=== PATIENT | female | born 1950 | race Caucasian/White ===

== ENCOUNTER 2019-11-17 10:29 | Inpatient (IN) ==
[~2019-11-17 10:29] MED LIST: Buffered Lidocaine 1% SYRIN 1 ml INTRADERM ONE; Famotidine IV 10 MG/ML 2 ml VIAL (20 mg) IV ONE; Lactated Ringers 1000 ml BAG 1,000 ML IV SCH
[2019-11-17] MEDS ORDERED: ceFAZolin 2 GM PREMIX in ORs 2 GM/50 ML BAG ONE ×2 (10:47→10:48)
[2019-11-17] MEDS ORDERED: Famotidine IV 10 MG/ML 2 ml VIAL (20 mg) ONE (10:48)
[2019-11-17] MEDS ORDERED: fentaNYL 100 mcg/2 ml 50 MCG/ML VIAL ONE (11:46)
[2019-11-17] MEDS ORDERED: Midazolam 2 mg/2 ml VIAL 1 mg/ml 2 ml VIAL (2 mg) ONE ×3 (11:47→13:32)
[2019-11-17] MEDS ORDERED: fentaNYL 100 mcg/2 ml 50 MCG/ML VIAL IV PRN (11:59)
[2019-11-17] MEDS ORDERED: DiMENhydriNATE IV 50 mg/ml 1 ml VIAL IV PUSH PRN (11:59)
[2019-11-17] MEDS ORDERED: Ondansetron 4 mg VIAL 2 MG/ML 2 ml VIAL IV PRN ×2 (11:59→14:17)
[2019-11-17] MEDS ORDERED: Naloxone 0.4 mg VIAL 0.4 mg/ml 1 ml VIAL IV PRN (11:59)
[2019-11-17] MEDS ORDERED: ROPIVACAINE 5 MG/ML 30 ML BTL (0.5%) ONE ×2 (12:01→12:34)
[2019-11-17] MEDS ORDERED: Lidocaine 2% PF 5 ML VIAL ONE (12:27)
[2019-11-17] MEDS ORDERED: Propofol 10 MG/ML 20 ML BTL ONE (12:27)
[2019-11-17] MEDS ORDERED: Bupivacaine 0.5% SDV PF 30ML VIAL ONE (12:43)
[2019-11-17] MEDS ORDERED: Dexamethasone IV 4 MG/ML VIAL 1 ml VIAL ONE (12:58)
[2019-11-17] MEDS ORDERED: Ondansetron 4 mg VIAL 2 MG/ML 2 ml VIAL ONE (12:58)
[2019-11-17] MEDS ORDERED: Metoclopramide 5 MG/ML VIAL (10 mg) ONE (12:58)
[2019-11-17] MEDS ORDERED: Acetaminophen IV 1 GM/100ML 100 ML ONE (13:03)
[2019-11-17] MEDS ORDERED: Morphine 2 MG/ML SYRINGE IV PRN (14:17)
[2019-11-17] MEDS ORDERED: diPHENhydraMINE 25 mg TAB PO PRN (14:17)
[2019-11-17] MEDS ORDERED: Lactulose 30 ml UDC PO PRN (14:17)
[2019-11-17] MEDS ORDERED: Magnesium Hydroxide LIQ 30 ML UDC PO PRN (14:17)
[2019-11-17] MEDS ORDERED: Ondansetron ODT 4 mg TAB 4 MG TAB PO PRN (14:17)
[2019-11-17] MEDS ORDERED: diPHENhydraMINE IV 50 MG/ML 1 ml VIAL (BENADRYL) IV PRN (14:17)
[2019-11-17] MEDS ORDERED: oxyCODONE/Acetamin 5/325 mg TAB ONE (16:03)
[2019-11-17] MEDS: oxyCODONE/Acetamin 5/325 mg TAB PO PRN ×2 (16:05→21:57)
[2019-11-17] MEDS: Lactated Ringers 1000 ml BAG 1,000 ML IV SCH (16:30)
[2019-11-17] MEDS: Magnesium Hydroxide LIQ 30 ML UDC PO SCH (19:58)
[2019-11-17] MEDS: ceFAZolin 1 GM ADVAN(*) 1 GM in NS 0.9% 50 ML 50 ML IVPB SCH (22:58)
[2019-11-18] MEDS: oxyCODONE/Acetamin 5/325 mg TAB PO PRN ×3 (03:11→13:12)
[2019-11-18] MEDS: Lactated Ringers 1000 ml BAG 1,000 ML IV SCH (03:17)
[2019-11-18 04:56] LABS: Hematocrit 36 % (35-47); Hemoglobin 12.2 g/dL (12.0-16.0); Mean Platelet Volume 7.2 fL (7.4-10.4); Platelet Count 234 10^3/uL (150-450)
[2019-11-18 05:13] LABS: BUN/Creatinine Ratio 14.7 (8-20); Calcium 8.6 mg/dL (8.6-10.3); EGFR African American 92.4 (>60); EGFR Non-African American 76.4 (>60); Potassium 4.4 mmol/L (3.5-5.0)
[2019-11-18] MEDS: ceFAZolin 1 GM ADVAN(*) 1 GM in NS 0.9% 50 ML 50 ML IVPB SCH ×2 (06:34→14:05)
[2019-11-18] MEDS ORDERED: Vitamin THERAPEUTIC TAB PO SCH (09:00)
[2019-11-18] MEDS: Magnesium Hydroxide LIQ 30 ML UDC PO SCH (09:15)
[2019-11-18 11:35] VITALS: BP 158/65
== END 2019-11-18 15:30 | disposition home health service (06) | DRG 470 ==
LOC: AA 10:29 → SSU 16:23
PROVIDERS: ADMIT Orthopaedic Surgery Adult Reconstructive Orthopaedic Surgery; ATTEND Orthopaedic Surgery Adult Reconstructive Orthopaedic Surgery

== ENCOUNTER 2021-01-17 06:41 | Inpatient (IN) ==
[~2021-01-17 06:41] MED LIST changes: +DiMENhydriNATE IV 50 mg/ml 1 ml VIAL IV PUSH ONE; -Famotidine IV 10 MG/ML 2 ml VIAL (20 mg) IV ONE; +HYDROcodone/ACETAMIN 5/325 mg TAB PO PRN; +Metoclopramide 5 MG/ML VIAL (10 mg) IV PRN; +Naloxone 0.4 mg VIAL 0.4 mg/ml 1 ml VIAL IV PRN; +Ondansetron 4 mg VIAL 2 MG/ML 2 ml VIAL IV PRN; +fentaNYL 100 mcg/2 ml 50 MCG/ML VIAL IV PRN
[2021-01-17] MEDS ORDERED: Lidocaine 2% PF 5 ML VIAL ONE (06:59)
[2021-01-17] MEDS ORDERED: fentaNYL 100 mcg/2 ml 50 MCG/ML VIAL ONE ×2 (06:59→12:10)
[2021-01-17] MEDS ORDERED: Dexamethasone IV 4 MG/ML VIAL 1 ml VIAL ONE ×2 (06:59→07:03)
[2021-01-17] MEDS ORDERED: Midazolam 2 mg/2 ml VIAL 1 mg/ml 2 ml VIAL (2 mg) ONE (06:59)
[2021-01-17] MEDS ORDERED: Propofol 10 MG/ML 20 ML BTL ONE ×3 (06:59→11:46)
[2021-01-17] MEDS ORDERED: Ondansetron 4 mg VIAL 2 MG/ML 2 ml VIAL ONE (06:59)
[2021-01-17] MEDS ORDERED: DiMENhydriNATE IV 50 mg/ml 1 ml VIAL ONE (07:18)
[2021-01-17] MEDS ORDERED: Buffered Lidocaine 1% SYRIN 1 ml INTRADERM ONE (07:18)
[2021-01-17] MEDS ORDERED: ceFAZolin 2 GM in NS PREMIX 2 GM/100 ML BAG IVPB ONE (07:18)
[2021-01-17] MEDS ORDERED: Bupivacaine 0.5% SDV PF 30ML VIAL ONE (07:39)
[2021-01-17] MEDS ORDERED: Propofol 0 MG/0 ML BTL ONE (08:08)
[2021-01-17] MEDS ORDERED: Ropivacaine 5 MG/ML 20 ML VIAL 0.5% (100 MG) ONE (08:23)
[2021-01-17] MEDS ORDERED: diPHENhydraMINE 25 mg TAB PO PRN (10:14)
[2021-01-17] MEDS ORDERED: Morphine 2 MG/ML SYRINGE IV PRN (10:14)
[2021-01-17] MEDS ORDERED: Lactulose 30 ml UDC PO PRN (10:14)
[2021-01-17] MEDS ORDERED: Magnesium Hydroxide LIQ 30 ML UDC PO PRN (10:14)
[2021-01-17] MEDS ORDERED: diPHENhydraMINE IV 50 MG/ML 1 ml VIAL (BENADRYL) IV PRN (10:14)
[2021-01-17] MEDS ORDERED: Ondansetron ODT 4 mg TAB 4 MG TAB PO PRN (10:14)
[2021-01-17] MEDS ORDERED: Ondansetron 4 mg VIAL 2 MG/ML 2 ml VIAL IV PRN (10:14)
[2021-01-17] MEDS ORDERED: Phenylephrine 40 mcg/mL 10mL (400mcg) SYRINGE ONE (10:21)
[2021-01-17] MEDS ORDERED: Phenylephrine IV 10 MG/ML 1 ml VIAL ONE (10:21)
[2021-01-17] MEDS: fentaNYL 100 mcg/2 ml 50 MCG/ML VIAL IV PRN ×3 (12:13→12:39)
[2021-01-17] MEDS ORDERED: HYDROcodone/ACETAMIN 5/325 mg TAB PO PRN (12:16)
[2021-01-17] MEDS: Lactated Ringers 1000 ml BAG 1,000 ML IV SCH (14:07)
[2021-01-17] MEDS: ceFAZolin 1 GM ADVAN 1 GM in NS 0.9% 50 ML 50 ML IVPB SCH (16:56)
[2021-01-17] MEDS: Magnesium Hydroxide LIQ 30 ML UDC PO SCH (21:18)
[2021-01-18] MEDS: Lactated Ringers 1000 ml BAG 1,000 ML IV SCH (01:04)
[2021-01-18] MEDS: ceFAZolin 1 GM ADVAN 1 GM in NS 0.9% 50 ML 50 ML IVPB SCH ×2 (01:04→10:08)
[2021-01-18 06:45] LABS: Hematocrit 34 % (35-47); Hemoglobin 11.8 g/dL (12.0-16.0); Mean Platelet Volume 7.6 fL (7.4-10.4); Platelet Count 244 10^3/uL (150-450)
[2021-01-18 07:09] LABS: Calcium 8.4 mg/dL (8.6-10.3); EGFR African American 90.5 (>60); EGFR Non-African American 74.8 (>60)
[2021-01-18] MEDS ORDERED: Vitamin THERAPEUTIC TAB PO SCH (09:00)
[2021-01-18] MEDS ORDERED: Cholecalciferol (VIT D3) 1,000 unit TAB PO SCH (09:00)
[2021-01-18] MEDS: Magnesium Hydroxide LIQ 30 ML UDC PO SCH (10:07)
[2021-01-18 11:29] VITALS: BP 159/83
== END 2021-01-18 13:33 | disposition home or self-care (01) | DRG 470 ==
LOC: AA 06:41 → SSU 10:14
PROVIDERS: ADMIT Orthopaedic Surgery Adult Reconstructive Orthopaedic Surgery; ATTEND Orthopaedic Surgery Adult Reconstructive Orthopaedic Surgery